=== PATIENT | female | born 1960 | race Caucasian/White ===

== ENCOUNTER 2024-11-06 14:09 | Emergency (ER) | payer OTHER, MEDICARE, SELFPAY ==
[2024-11-06 14:27] VITALS: BP 126/72; PULSE 67; RESP 18; TEMP 36.7; O2SAT 98; BMI 37.0
--- NOTE | 2024-11-06 14:44 | XR_ITS ---
WS: [id number] Portable AP upright chest, 11/06/2024 Clinical Data: cough Comparison: None. Findings: No nodules, masses or effusions are seen. The heart is normal. The pulmonary vascularity is not increased. No pneumothorax is seen. There is a fibrotic strand in the right middle lobe. There is a patchy opacity in the retrocardiac region which could represent minimal pneumonia and/or atelectasis.. XR/XR chest 1V portable [id number] Impression: Patchy opacity in retrocardiac region left lower lobe I recommend repeat chest x-rays of 1 to 2 days to rule out pneumonia.
[2024-11-06 16:04] LABS: Basophils % 0.2 %; Eosinophils # 0.2 10^3/uL (0.0-0.8); Eosinophils % 2.9 %; Hematocrit 29.7 % (36-47); Lymphocytes # 1.3 10^3/uL (0.8-4.8); Lymphocytes % 23.7 %; Mean Corpuscular HGB Conc 31.6 g/dL (30-55); Mean Corpuscular Hemoglobin 29.3 pg (27-33); Mean Corpuscular Volume 92.5 fl (85-98); Mean Platelet Volume 9.8 fL (7.4-10.4); Monocytes # 0.6 10^3/uL (0.2-0.9); Monocytes % 10.7 %; Neutrophils # 3.35 10^3/uL (1.8-7.7); Neutrophils % 60.7 %; Nucleated Red Blood Cells % 0.4 %; Platelet Count 119 10^3/cmm (157-399); Red Blood Count 3.21 10^6/uL (3.85-5.65); White Blood Count 5.52 10^3/uL (3.29-11.43)
[2024-11-06 16:29] LABS: Alanine Aminotransferase 7 U/L (0-33); Albumin Level 3.7 g/dL (3.5-5.2); Alkaline Phosphatase 71 U/L (35-105); Anion Gap 15.5 (5-19); Aspartate Amino Transferase 8 U/L (0-32); Blood Urea Nitrogen 38 mg/dL (8-23); Calcium 9.1 mg/dL (8.5-10.5); Carbon Dioxide 21 mmol/L (22-29); Chloride 106 mmol/L (98-107); Creatinine Clr Calc Pharmacy 42.9686; Globulin 4.1 g/dL (1.3-4.6); Glomerular Filtration Rate 32.7 mL/min (90-130); Glucose 151 mg/dL (65-115); Osmolality Calculated 296 mOsm/kg (285-295); Potassium 5.5 mmol/L (3.5-5.1); Sodium 137 mmol/L (136-145); Total Bilirubin 0.3 mg/dL (0.15-1.2); Total Protein 7.8 g/dL (6.6-8.7)
[2024-11-06 16:31] LABS: Bilirubin Urine Negative (Negative); Blood Urine 2+ (Negative); Glucose Urine UA Negative (Normal); Ketones Urine Trace (Negative); Leukocyte Esterase Urine 1+ (Negative); Nitrate Urine Negative (Negative); Protein Urine 2+ (Negative); Specific Gravity, Urine 1.022 (1.005-1.030); Urine Appearance Clear (CLEAR); Urine Color Yellow (Yellow)
[2024-11-06 16:53] LABS: Add Urine Culture? Yes; Add Urine Microscopic? YES; Bacteria Urine 2+ /hpf; Mucus Urine TRACE /hpf
--- NOTE | 2024-11-06 18:56 | ED_ITS ---
HPI - Weakness 2 General: Chief complaint: Weakness Stated complaint: weakness Time Seen by Provider: 11/06/24 16:34 History of Present Illness: This patient is a 64-year-old white female who presents to the emergency department with flulike symptoms. Patient states she had influenza 3 weeks ago and recovered. She is just started having similar symptoms several days ago again. She has been coughing. She has had congestion. She has not had a fever. Patient is a liver transplant recipient. She had cirrhosis secondary to alpha-1 antitrypsin disease. Review of Systems 2 General: Reports: 10 or more systems reviewed and unremarkable except in HPI and below Const: Reports: fatigue and malaise ENMT: Reports: nasal congestion Resp: Reports: non-productive cough Physical Exam 2 Const: COMMON NORMALS: no acute distress, patient oriented x3 and no limitations GENERAL APPEARANCE: cooperative and comfortable HENMT: COMMON NORMALS: normocephalic, atraumatic, Normal nasal mucous membranes and turbinates present, moist oral mucous membranes and oropharynx normal HEAD & SCALP: normal to inspection, normocephalic and atraumatic F CHANDRIKA & SINUS: normal facial exam NOSE: Normal nasal mucous membranes and turbinates present Eye: COMMON NORMALS: Equal, round and reactive pupils present, EOMs intact bilaterally and conjunctivae normal GENERAL EYE: appearance normal, both eyes and all related structures CONJUNCTIVA: Yes conjunctivae normal PUPIL: Yes Equal, round and reactive pupils present Neck/C-Spine: COMMON NORMALS: supple and no JVD Chest: COMMONS NORMALS: normal inspection of the chest Resp: COMMON NORMALS: normal respiratory effort and clear to auscultation bilaterally AUSCULTATION: clear to auscultation bilaterally Cardio: COMMON NORMALS: no JVD, regular rate, regular rhythm, No gallops present (Cardio), No murmurs present (Cardio) and No rub (Cardio) RATE: r egular rate RHYTHM: regular rhythm GI: COMMON NORMALS: Normal to inspection, nondistended, normoactive bowel sounds present, Soft to palpation and non-tender AUSCULTATION: Yes normoactive bowel sounds PALPATION: Yes Soft to palpation : COMMON NORMALS: Yes no CVA tenderness BLADDER/KIDNEY EXAM: Yes no CVA tenderness Back/Pelvis: COMMON NORMALS: no CVA tenderness and thoracic and lumbar spine normal to inspection Extremity: COMMON NORMALS: normal to inspection Neuro: COMMON NORMALS: patient oriented x3 and CN's II-XII intact bilaterally Psych: COMMON NORMALS: mental status grossly normal, Normal thought process present and cooperative THOUGHT PROCESS: Normal thought process present Skin: COMMON NORMALS: no rashes or lesions noted, turgor normal and no jaundice GENERAL SKIN EXAM: no rashes or lesions noted and turgor normal Course 2 Vital Signs: Vital signs: Vital Signs Temperature 98.0 F 11/06/24 14:27 Pulse Rate 67 11/06/24 14:27 Respiratory Rate 18 11/06/24 14:27 Blood Pressure 126/72 11/06/24 14:27 Pulse Oximetry 98 11/06/24 14:27 Oxygen Delivery Me thod Room Air 11/06/24 14:27 MDM - Weakness Medical Decision Making CBC was normal except for low hemoglobin of 9.4. This is stable. CMP revealed a potassium of 5.5, BUN 38 creatinine 1.6. Chest x-ray was read by the radiologist. Questionable retrocardiac infiltrate. I discussed all of the results with the patient. I did place her on Levaquin for possible early pneumonia. I recommended she follow-up with her primary care provider next week for recheck. She was discharged in stable condition. Lab Data 11/06/24 15:57 11/06/24 15:57 Radiology Impressions Chest X-Ray 11/06/24 14:44 Impression: Patchy opacity in retrocardiac region left lower lobe I recommend repeat chest x-rays of 1 to 2 days to rule out pneumonia. Laboratory Results WBC 5.52 10^3/uL (3.29-11.43) 11/06/24 15:57 RBC 3.21 10^6/uL (3.85-5.65) L 11/06/24 15:57 Hgb 9.40 g/dL (11.27-16.99) L 11/06/24 15:57 Hct 29.7 % (36-47) L 11/06/24 15:57 MCV 92.5 fl (85-98) 11/06/24 15:57 MCH 29.3 pg (27-33) 11/06/24 15:57 MCHC 31.6 g/dL (30-55) 11/06/24 15:57 RDW 14.0 % (12.1-15.1) 11/06/24 15:57 Plt Count 119 10^3/cmm (157-399) L 11/06/24 15:57 MPV 9.8 fL (7.4-10.4) 11/06/24 15:57 Neut % (Auto) 60.7 % 11/06/24 15:57 Lymph % (Auto) 23.7 % 11/06/24 15:57 [place] % (Auto) 10.7 % 11/06/24 15:57 Eos % (Auto) 2.9 % 11/06/24 15:57 Baso % (Auto) 0.2 % 11/06/24 15:57 Neut # (Auto) 3.35 10^3/uL (1.8-7.7) 11/06/24 15:57 Lymph # (Auto) 1.3 10^3/uL (0.8-4.8) 11/06/24 15:57 [place] # (Auto) 0.6 10^3/uL (0.2-0.9) 11/06/24 15:57 Eos # (Auto) 0.2 10^3/uL (0.0-0.8) 11/06/24 15:57 Baso # (Auto) 0.0 10^3/uL (0.0-0.1) 11/06/24 15:57 Nucleated RBC % (auto) 0.4 % 11/06/24 15:57 Nucleated RBCs # 0.0 /100WBC 11/06/24 15:57 Sodium 137 mmol/L (136-145) 11/06/24 15:57 Potassium 5.5 mmol/L (3.5-5.1) H 11/06/24 15:57 Chloride 106 mmol/L (98-107) 11/06/24 15:57 Carbon Dioxide 21 mmol/L (22-29) L 11/06/24 15:57 Anion Gap 15.5 (5-19) 11/06/24 15:57 BUN 38 mg/dL (8-23) H 11/06/24 15:57 Creatinine 1.6 mg/dL (0.5-0.9) H 11/06/24 15:57 GFR Calculation 32.7 mL/min (90-130) L 11/06/24 15:57 Glucose 151 mg/dL (65-115) H 11/06/24 15:57 Calculated Osmolality 296 mOsm/kg (285-295) H 11/06/24 15:57 Calcium 9.1 mg/dL (8.5-10.5) 11/06/24 15:57 Total Bilirubin 0.3 mg/dL (0.15-1.2) 11/06/24 15:57 AST 8 U/L (0-32) 11/06/24 15:57 ALT 7 U/L (0-33) 11/06/24 15:57 Alkaline Phosphatase 71 U/L (35-105) 11/06/24 15:57 Total Protein 7.8 g/dL (6.6-8.7) 11/06/24 15:57 Albumin 3.7 g/dL (3.5-5.2) 11/06/24 15:57 Globulin 4.1 g/dL (1.3-4.6) 11/06/24 15:57 Urine Color Yellow (Yellow) 11/06/24 16:10 Urine Appearance Clear (CLEAR) 11/06/24 16:10 Urine pH 5.0 (5-7) 11/06/24 16:10 Ur Specific [place] 1.022 (1.005-1.030) 11/06/24 16:10 Urine Protein 2+ (Negative) A 11/06/24 16:10 Urine Glucose (UA) Negative (Normal) 11/06/24 16:10 Urine Ketones Trace (Negative) 11/06/24 16:10 Urine Blood 2+ (Negative) A 11/06/24 16:10 Urine Nitrate Negative (Negative) 11/06/24 16:10 Urine Bilirubin Negative (Negative) 11/06/24 16:10 Urine Urobilinogen 1.0 mg/dL (Negative) 11/06/24 16:10 Ur Leukocyte Esterase 1+ (Negative) A 11/06/24 16:10 Urine RBC 5-10 /hpf (0-2) H 11/06/24 16:10 Urine WBC 10-15 /hpf (0-5) H 11/06/24 16:10 Ur Squamous Epith Cells 5-10 /hpf (0-5) H 11/06/24 16:10 Amorphous Sediment Not Reportable 11/06/24 16:10 Urine Bacteria 2+ /hpf (NONE) H 11/06/24 16:10 Urine Mucus Trace /hpf 11/06/24 16:10 All radiology interpretation(s) finalized by discharge Discharge Plan Discharge Patient Disposition: Home Clinical Impression: Pneumonia Qualifiers: Pneumonia type: due to unspecified organism Laterality: left Lung location: l ower lobe of lung Qualified Code(s): J18.9 - Pneumonia, unspecified organism Condition: Stable Prescriptions: New levofloxacin 500 mg tablet 500 mg PO DAILY 7 Days Qty: 7 0RF Discharge Orders: Discharge ED (Routine); Ordered 11/06/24 Ordered By: Satinder Griffith Referrals: Sarwat Alvarez MD [Primary Care Provider] - Patient Instructions: Pneumonia (ED) Activity Restrictions/Additional Instructions: Follow-up with your primary care provider in 1 week for recheck. If condition worsens return to the emergency department. Print Language: Montserratian Coding Level of Care Code ED Account Development Specialist for [facility] Fwd Related Data Previous Rx's ?Medication ?Instructions ?Recorded levofloxacin 500 mg tablet 500 mg PO DAILY 7 days #7 t abs 11/06/24 Allergies Allergy/AdvReac Type Severity Reaction Status Date / Time cephalexin (From Keflex) Allergy Unknown Verified 11/06/24 14:35 Penicillins Allergy Unknown Verified 11/06/24 14:35 Sulfa (Sulfonamide Allergy Unknown Verified 11/06/24 14:35 Antibiotics)
== END 2024-11-06 17:08 | disposition home or self-care (01) ==
PROVIDERS: Physician Assistant; Emergency Provider Emergency Medicine; PCP Internal Medicine Gastroenterology
DX: J18.9 Pneumonia, unspecified organism (principal)
CPT/HCPCS: 36415; 71045; 80053; 81001; 85025; 87086; 99284